=== PATIENT | male | born 1990 | race Two or more races ===

== ENCOUNTER 2019-04-13 18:59 | Emergency (ER) | payer SELFPAY ==
[~2019-04-13] VITALS: Ht 175.3 cm; Wt 77.0 kg
[2019-04-13 19:13] LABS: BILIRUBIN,URINE NEGATIVE (NEG); CLARITY,URINE CLEAR; COLOR,URINE YELLOW; NITRITE,URINE NEGATIVE (NEG); PH,URINE 6.5; PROTEIN,URINE NEGATIVE (NEG-TRACE)
[2019-04-13 19:18] LABS: SQUAMOUS EPITHELIAL CELL,UR FEW /LPF
[2019-04-13 19:19] LABS: BACTERIA,URINE 0 /HPF (0-FEW); RBC,URINE 0 /HPF (0-2); SPERM,URINE PRESENT /HPF
[2019-04-13] MEDS ORDERED: IV NORMAL SALINE 1000ML BAG 1,000 ML IV SCH (19:58)
[2019-04-13] MEDS ORDERED: ONDANSETRON PF 4 MG/2 ML VIAL. IV ONE (20:00)
[2019-04-13] MEDS ORDERED: KETOROLAC 15 MG/ML VIAL. IV ONE (20:00)
--- NOTE | 2019-04-13 20:02 | PHYS DOC ---
Adult General Chief Complaint Chief Complaint: FLANK PAIN HPI HPI 28-year-old male presents to the emergency department with complaints of right flank pain radiation to the front around the umbilicus. Patient denies any n ausea, vomiting, fever, difficulty or frequency of urination. He states the pain started approximately 1 hour ago, describes his pain as sharp sensation. Patient's heart rate is in the 120s to 130s, in obvious distress. Nothing makes his pain worse, nothing makes his pain better. Review of Systems Review of Systems Constitutional: Denies fever or chills [] Respiratory: Denies cough or shortness of breath [] Cardiovascular: No additional information not addressed in HPI [] GI: right flank pain, no nausea, vomiting, bloody stools or diarrhea [] : Denies dysuria or hematuria [] Musculoskeletal: right flank pain Integument: Denies rash or skin lesions [] Neurologic: Denies headache, focal weakness or sensory changes [] All other systems were reviewed and found to be within normal limits, except as documented in this note. Current Medications Current Medications Current Medications Medications (Trade) Dose Ordered Sig/[facility] Start Time Stop Time Status Last Admin Dose Admin Ketorolac Tromethamine (Toradol 15mg Vial) 30 mg 1X ONCE 04/13/19 20:00 04/13/19 20:01 DC 04/13/19 20:06 30 MG Ondansetron HCl (Zofran) 4 mg 1X ONCE 04/13/19 20:00 04/13/19 20:01 DC 04/13/19 20:06 4 MG Sodium Chloride 1,000 ml @ 1,000 mls/hr Q1H 04/13/19 19:58 04/13/19 20:57 DC 04/13/19 20:06 1,000 MLS/HR Allergies Allergies Allergies Coded Allergies Type Severity Reaction Last Updated Verified No Known Drug Allergies 04/13/19 No Physical Exam Physical Exam Constitutional: Well developed, well nourished, no acute distress, non-toxic appearance. [] HENT: Normocephalic, atraumatic, bilateral external ears normal, oropharynx moist, no oral exudates, nose normal. [] Eyes: PERRLA, EOMI, conjunctiva normal, no discharge. [] Cardiovascular: Tachycardia Lungs & Thorax: Bilateral breath sounds clear to auscultation [] Abdomen: Bowel sounds normal, soft, mild tenderness appreciated on exam around umbilicus, no masses, no pulsatile masses. [] Skin: Warm, dry, no erythema, no rash. [] Back: No tenderness, right CVA tenderness. [] Extremities: No tenderness, no edema. [] Neurologic: Alert and oriented X 3, no focal deficits noted. [] Psychologic: Affect normal, judgement normal, mood normal. [] Current Patient Data Vital Signs Vital Signs Date Time Temp Pulse Resp B/P (MAP) Pulse Ox O2 Delivery O2 Flow Rate FiO2 04/13/19 19:00 99.7 124 20 139/91 (107) 99 Room Air 99.7 Lab Values Laboratory Tests Test 04/13/19 19:02 04/13/19 19:18 Urine Collection Type Unknown Urine Color Yellow Urine Clarity Clear Urine pH 6.5 Urine Specific Hart[place] 1.015 Urine Protein Negative mg/dL (NEG-TRACE) Urine Glucose (UA) Negative mg/dL (NEG) Urine Ketones (Stick) Negative mg/dL (NEG) Urine Blood Negative (NEG) Urine Nitrite Negative (NEG) Urine Bilirubin Negative (NEG) Urine Urobilinogen Dipstick 1.0 mg/dL (0.2 mg/dL) Urine Leukocyte Esterase Negative (NEG) Urine RBC 0 /HPF (0-2) Urine WBC 1-4 /HPF (0-4) Urine Squamous Epithelial Cells Few /LPF Urine Bacteria 0 /HPF (0-FEW) Urine Mucus Mod /LPF Urine Sperm Present /HPF White Blood Count 8.5 x10^3/uL (4.0-11.0) Red Blood Count 5.77 x10^6/uL (4.30-5.70) H Hemoglobin 17.0 g/dL (13.0-17.5) Hematocrit 49.7 % (39.0-53.0) Mean Corpuscular Volume 86 fL (79-100) Mean Corpuscular Hemoglobin 29 pg (25-35) Mean Corpuscular Hemoglobin Concent 34 g/dL (31-37) Red Cell Distribution Width 13.3 % (11.5-14.5) Platelet Count 349 x10^3/uL (140-400) Neutrophils (%) (Auto) 60 % (31-73) Lymphocytes (%) (Auto) 33 % (24-48) Monocytes (%) (Auto) 7 % (0-9) Eosinophils (%) (Auto) 0 % (0-3) Basophils (%) (Auto) 0 % (0-3) Neutrophils # (Auto) 5.1 x10^3/uL (1.8-7.7) Lymphocytes # (Auto) 2.8 x10^3/uL (1.0-4.8) Monocytes # (Auto) 0.6 x10^3/uL (0.0-1.1) Eosinophils # (Auto) 0.0 x10^3/uL (0.0-0.7) Basophils # (Auto) 0.0 x10^3/uL (0.0-0.2) Sodium Level 141 mmol/L (136-145) Potassium Level 3.4 mmol/L (3.5-5.1) L Chloride Level 100 mmol/L (98-107) Carbon Dioxide Level 26 mmol/L (21-32) Anion Gap 15 (6-14) H Blood Urea Nitrogen 6 mg/dL (8-26) L Creatinine 0.9 mg/dL (0.7-1.3) Estimated GFR (Cockcroft-Gault) 99.8 BUN/Creatinine Ratio 7 (6-20) Glucose Level 114 mg/dL (70-99) H Calcium Level 9.6 mg/dL (8.5-10.1) Total Bilirubin 1.0 mg/dL (0.2-1.0) Aspartate Amino Transferase (AST) 31 U/L (15-37) Alanine Aminotransferase (ALT) 51 U/L (16-63) Alkaline Phosphatase 80 U/L (46-116) Total Protein 8.5 g/dL (6.4-8.2) H Albumin 4.5 g/dL (3.4-5.0) Albumin/Globulin Ratio 1.1 (1.0-1.7) Laboratory Tests 04/13/19 19:18 Laboratory Tests 04/13/19 19:18 EKG EKG [] Radiology/Procedures Radiology/Procedures [facility] [address] [place], [place] [id number] IMAGING REPORT Signed PATIENT: LIBRADO TAVERAS CACCOUNT: [id number] : 1990 LOCATION: ER AGE: 28 SEX: M EXAM STATUS: REG ER ORD. PHYSICIAN: RONAN MCCALLUM MD REASON: right flank pain, negative urine for blood PROCEDURE: CT ABDOMEN PELVIS WO CONTRAST CT ABDOMEN PELVIS WO CONTRAST History: Right flank pain. Technique: Noncontrast examination of the abdomen and pelvis. Coronal and sagittal reconstructions were performed. Exposure: One or more of the following individualized dose reduction techniques were utilized for this examination: 1. Automated exposure control 2. Adjustment of the mA and/or kV according to patient size 3. Use of iterative reconstruction technique. Comparison: None Findings: Lower chest: No consolidation or pleural effusion. Mild gynecomastia. 3 mm right middle lobe pulmonary nodule (series 2 image 4). Abdomen and pelvis: Hepatic steatosis. Focal fatty sparing within the right anterior hepatic lobe. The spleen, adrenal glands, pancreas and gallbladder are unremarkable. No biliary ductal dilatation. Normal appearance of the kidneys. No hydronephrosis. No intrarenal calculi. No ureteral or urinary bladder calculi. Normal appendix. No evidence of bowel obstruction. No pathologic lymphadenopathy. No ascites. Small fat-containing umbilical hernia. Bones: No pathologic osseous lesions. Impression: 1. No acute intra-abdominal or pelvic pathology. No obstructing urolithiasis. 2. Hepatic steatosis. 3. Right middle lobe pulmonary nodule. Recommend one-year follow-up if high risk. 4. Mild gynecomastia. Electronically signed by: Sigifredo Nugent DO (04/13/2019 9:58 PM) [facility] DICTATED and SIGNED BY: SIGIFREDO NUGENT DO DATE: 04/13/192157 [] Course & Med Decision Making Course & Med Decision Making Pertinent Labs and Imaging studies reviewed. (See chart for details) []28-year-old male presents to the emergency department with complaints of right flank pain radiation to the front around the umbilicus. Patient denies any nausea, vomiting, fever, difficulty or frequency of urination. He states the pain started approximately 1 hour ago, describes his pain as sharp sensation. Patient's heart rate is in the 120s to 130s, in obvious distress. Nothing makes his pain worse, nothing makes his pain better. He received IV fluids, pain medications upon initial evaluation with improvement Labs reviewed without acute findings, CT without contrast initially to evaluate for stone CT imaging without evidence of acute intra-abdominal process Discussed findings with patient/family at bedside Return precautions provided Reeval - patient states he has no pain at this time Dragon Disclaimer Dragon Disclaimer This electronic medical record was generated, in whole or in part, using a voice recognition dictation system. Departure Departure Impression: Primary Impression: Flank pain Additional Impression: Abdominal pain Disposition: HOME, SELF-CARE Condition: IMPROVED Patient Instructions: Abdominal Pain (Nonspecific), Flank Pain, [id number] Additional Instructions: Recommend follow up with PCP 3 - 5 days Tylenol/Motrin as needed for pain Bentyl rx provided for pain CT of abdomen and pelvis without acute findings, No evidence of urinary tract infection Return to the ER with worsening pain, fever Scripts Dicyclomine Hcl (DICYCLOMINE HCL) 10 Mg Capsule 1 CAP PO TID PRN for PAIN, #30 CAP 0 Refills Prov: RONAN MCCALLUM MD 04/13/19 Problem Qualifiers Additional Impression: Abdominal pain Abdominal location: unspecified location Qualified Codes: R10.9 - Unspecified abdominal pain RONAN MCCALLUM MD Apr 13, 2019 20:02
[2019-04-13 20:09] LABS: BASO % 0 % (0-3); EOS % 0 % (0-3); HEMATOCRIT 49.7 % (39.0-53.0); LYMPH # 2.8 x10^3/uL (1.0-4.8); LYMPH % 33 % (24-48); MEAN CORPUSCULAR HEMOGLOBIN 29 pg (25-35); MEAN CORPUSCULAR HGB CONC 34 g/dL (31-37); MEAN CORPUSCULAR VOLUME 86 fL (79-100); MONO # 0.6 x10^3/uL (0.0-1.1); MONO % 7 % (0-9); NEUT # 5.1 x10^3/uL (1.8-7.7); NEUT % 60 % (31-73); PLATELET COUNT 349 x10^3/uL (140-400); RED BLOOD COUNT 5.77 x10^6/uL (4.30-5.70); RED CELL DISTRIBUTION WIDTH 13.3 % (11.5-14.5); WHITE BLOOD COUNT 8.5 x10^3/uL (4.0-11.0)
[2019-04-13 20:15] LABS: CALCIUM 9.6 mg/dL (8.5-10.1); CREATININE 0.9 mg/dL (0.7-1.3); GFR 99.8; POTASSIUM 3.4 mmol/L (3.5-5.1)
[2019-04-13 20:20] LABS: ALBUMIN 4.5 g/dL (3.4-5.0); ALBUMIN/GLOBULIN RATIO 1.1 (1.0-1.7); TOTAL PROTEIN 8.5 g/dL (6.4-8.2)
--- NOTE | 2019-04-13 22:01 | RAD ---
CT ABDOMEN PELVIS WO CONTRAST History: Right flank pain. Technique: Noncontrast examination of the abdomen and pelvis. Coronal and sagittal reconstructions were performed. Exposure: One or more of the following individualized dose reduction techniques were utilized for this examination: 1. Automated exposure control 2. Adjustment of the mA and/or kV according to patient size 3. Use of iterative reconstruction technique. Comparison: None Findings: Lower chest: No consolidation or pleural effusion. Mild gynecomastia. 3 mm right middle lobe pulmonary nodule (series 2 image 4). Abdomen and pelvis: Hepatic steatosis. Focal fatty sparing within the right anterior hepatic lobe. The spleen, adrenal glands, pancreas and gallbladder are unremarkable. No biliary ductal dilatation. Normal appearance of the kidneys. No hydronephrosis. No intrarenal calculi. No ureteral or urinary bladder calculi. Normal appendix. No evidence of bowel obstruction. No pathologic lymphadenopathy. No ascites. Small fat-containing umbilical hernia. Bones: No pathologic osseous lesions. Impression: 1. No acute intra-abdominal or pelvic pathology. No obstructing urolithiasis. 2. Hepatic steatosis. 3. Right middle lobe pulmonary nodule. Recommend one-year follow-up if high risk. 4. Mild gynecomastia. Electronically signed by: Jean Claude Cruz DO (04/13/2019 9:58 PM) [facility]
[2019-04-13] MEDS ORDERED: DICY10CA3 PO (22:22)
[2019-04-13] MEDS ORDERED: IV NORMAL SALINE 1000ML BAG 1,000 ML IV ONE (22:30)
[2019-04-13 22:49] VITALS: BP 159/77
== END 2019-04-13 23:05 | disposition home or self-care (01) ==
LOC: ER 18:59
DX: R10.33 Periumbilical pain (principal)
CPT/HCPCS: 36415; 74176; 80053; 81001; 85025; 96374; 96375; 99285; J1885; J2405; J7030